=== PATIENT | male | born 1980 | race Caucasian/White ===

== ENCOUNTER 2019-11-24 13:33 | Outpatient (REF) | payer OTHER, SELFPAY ==
[2019-11-24 13:57] LABS: COVID-19 Test Negative (Negative)
== END 2019-11-24 13:34 | disposition home or self-care (01) ==
LOC: HO.LAB 13:33
PROVIDERS: PCP Nurse Practitioner Family; Visit Provider Internal Medicine
DX: Z20.828 Contact with and (suspected) exposure to other viral communicable diseases (principal)
CPT/HCPCS: 87635

== ENCOUNTER 2020-08-25 02:32 | Emergency (ER) | payer OTHER, SELFPAY ==
[2020-08-25 02:36] VITALS: BP 138/62; PULSE 90; O2SAT 99
[2020-08-25 02:47] VITALS: BP 110/70; PULSE 79; RESP 16; TEMP 36.6; O2SAT 96; BMI 29.6
--- NOTE | 2020-08-25 03:05 | ED.ALCOHOL ---
HPI - Alcohol General Chief Complaint: ETOH/Substance Use Stated Complaint: ETOH INTOXICATION Time Seen by Provider: 08/25/20 03:05 Source: patient Mode of arrival: EMS History of Present Illness HPI narrative: This is a 40-year-old male who was found sleeping on the roadside and EMS was called. Patient states that he was sleeping at the roadside because is medications make him drowsy and he suffers from narcolepsy. Related Data Allergies Allergy/AdvReac Type Severity Reaction Status Date / Time No Known Allergies Allergy Unverified 08/25/20 03:06 Review of Systems Review of Systems: Pertinent positives and negatives as stated in HPI 10 point review of systems is otherwise negative. [facility] Past Medical History Source: nursing notes reviewed Social History Social History Advance Directives: No Physical Exam Vital Signs: Vital Signs: Last Vital Signs Temp 97.9 F 08/25/20 02:47 Pulse 77 08/25/20 06:13 Resp 16 08/25/20 06:13 BP 107/58 L 08/25/20 06:13 Pulse Ox 97 08/25/20 06:13 Body Mass Index 29.6 VITAL SIGNS: Reviewed. GENERAL: Well developed, well nourished, in no acute distress. HEAD: Normocephalic/atraumatic EYES: PERRLA, EOMI OROPHARYNX: no oral lesions noted, posterior pharynx clear LUNGS: Normal breath sounds. No adventitious sounds or accessory muscle use. SpO2<97> CARDIOVASCULAR: Regular rate and rhythm without noted murmurs ABDOMEN: Soft, non-tender, non-distended with bowel sounds. SKIN: Inspection of the skin reveals no rashes NEUROLOGIC: Alert and oriented x 4. Strength and sensation to light touch were grossly intact x 4. Course Course Course Narrative: 40-year-old male with history and clinical presentation consistent with alcohol and/or substance use and on review of investigations patient found to be positive both alcohol as well as marijuana. On re-evaluation morning patient clinically sober and walking with a steady gait. Patient was discharged home in stable condition. MDM - Alcohol Lab Data Labs: Lab Results 08/25/20 08/25/20 Range/Units 03:16 03:25 Urine Opiates Screen Not Detected (Not Detect) Ur Barbiturates Screen Not Detected (Not Detect) Ur Phencyclidine Scrn Not Detected (Not Detect) Ur Amphetamines Screen Not Detected (Not Detect) U Benzodiazepines Scrn Not Detected (Not Detect) Urine Cocaine Screen Not Detected (Not Detect) U Marijuana (THC) Screen POSITIVE H (Not Detect) Ethyl Alcohol 86 mg/dL Discharge Plan Discharge Clinical Impression: Alcoholic intoxication Patient Disposition: Home, Self-Care Instructions: Alcohol Intoxication (ED) Additional Instructions: Return to the ER for acute worsening of symptoms. Referrals: Physician,Unknown [Primary Care Provider] - 2 days
[2020-08-25 03:45] LABS: Ethanol 86 mg/dL
[2020-08-25 03:59] LABS: Amphetamine Screen Urine Not Detected (Not Detect); Barbiturates, Urine Not Detected (Not Detect); Benzodiazepines Screen Urine Not Detected (Not Detect); Cannabinoid Screen Urine POSITIVE (Not Detect); Cocaine Screen Urine Not Detected (Not Detect); Opiate Screen Urine Not Detected (Not Detect); Phencyclidine Screen Urine Not Detected (Not Detect)
[2020-08-25 06:13] VITALS: BP 107/58; PULSE 77; RESP 16; O2SAT 97
--- NOTE | 2020-08-25 06:14 | PC.NURSE ---
PT IS MORE AWAKE, TALKING IN FULL SENTENCES. PT GIVEN PO CHALLENGE AND TO AMBULATED IN HALLWAY.
--- NOTE | 2020-08-25 06:19 | PC.NURSE ---
pt is alert and oriented, skin pink warm and dry, talking in full sentences and is staying awake. pt ambulated with a steady gait with no sob or difficulty. pt asking for crackers and gingeral and has been given.
== END 2020-08-25 06:33 | disposition home or self-care (01) ==
PROVIDERS: Emergency Provider Student in an Organized Health Care Education/Training Program
DX: F10.129 Alcohol abuse with intoxication, unspecified (principal); Y90.4 Blood alcohol level of 80-99 mg/100 ml; G47.419 Narcolepsy without cataplexy; Z79.899 Other long term (current) drug therapy
CPT/HCPCS: 36415; 80307; 82077; 99284